=== PATIENT | female | born 1995 | race Caucasian/White ===

== ENCOUNTER 2021-02-18 12:57 | Emergency (ER) | payer OTHER, SELFPAY ==
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
[2021-02-18 13:13] VITALS: BP 144/76; PULSE 76; RESP 16; TEMP 36.2; O2SAT 100
== END 2021-02-18 13:44 | disposition home or self-care (01) ==
PROVIDERS: Emergency Provider Nurse Practitioner Family
DX: M54.50 Low back pain, unspecified (principal); V48.6XXD Car passenger injured in noncollision transport accident in traffic accident, subsequent encounter; J45.909 Unspecified asthma, uncomplicated
CPT/HCPCS: 99213; G0463

== ENCOUNTER 2021-05-31 14:10 | Emergency (ER) | payer OTHER, SELFPAY ==
--- NOTE | 2021-05-31 14:24 | ED.GENADULT ---
HPI - General Adult General Chief complaint: Urogenital-Female Stated complaint: vaginal discharge Time Seen by Provider: 05/31/21 14:28 Source: patient Mode of arrival: ambulatory Limitations: no limitations History of Present Illness HPI narrative: 25-year-old female patient presents to the [facility] with complaints vaginal discharge for the past 2 to 3 days. Patient states she was contacted by her ex and was told that he was diagnosed with an STD but she was not sure which one. Patient states she has had chlamydia before and has been diagnosed with herpes. Patient denies at this time stating she recently has had a period. Related Data Home Medications Medication Instructions Recorded Confirmed albuterol sulfate See Rx Instructions .ROUTE .COMPLEX 02/18/21 05/31/21 Allergies Allergy/AdvReac Type Severity Reaction Status Date / Time No Known Allergies Allergy Unknown Verified 05/31/21 14:31 Review of Systems Review of Systems: CONSTITUTIONAL: Denies fever, chills, or sweats. EYES: Denies visual changes, redness, or discharge. ENT: Denies rhinorrhea, congestion, sore throat, or otalgia. CARDIOVASCULAR: Denies chest pain, palpitations, or edema. RESPIRATORY: Denies cough or dyspnea. GASTROINTESTINAL: Denies abdominal pain, nausea, vomiting, or diarrhea. GENITOURINARY: Denies dysuria or hematuria. Positive vaginal discharge SKIN: Denies rash or itching. MUSCULOSKELETAL: Denies back pain, joint pain, or myalgia. NEUROLOGIC: Denies headache, numbness, or weakness. PSYCHIATRIC: Denies anxiety or depression. PMFSH Comments At the time of my signature I agree with nursing past medical history, surgical, social, and family history. There is no relevant family history pertinent to the presenting complaint. Exam Narrative: GENERAL: Well-appearing, well-nourished, and in no acute distress. HEAD: Normocephalic, atraumatic. EYES: PERRLA and EOMI. ENT: Nares clear, no rhinorrhea or epistaxis. Mucous membranes moist. NECK: Supple. No lymphadenopathy CHEST: Clear to auscultation. No respiratory distress. HEART: Regular rate and rhythm. No murmur heard. Normal peripheral pulses. ABDOMEN: Soft, nontender, nondistended, normal active bowel sounds. : Normal external female genitalia. OS is closed. No adnexal fullness or TTP. No CVA tenderness to percussion. Patient does have some white milky discharge noted on exam with odor. EXTREMITIES: Normal range of motion. No edema. SKIN: Warm, dry, no rash. NEURO: No focal deficits. Alert and oriented x3. Course Course Level of Care: Express Care Visit Vital Signs Vital signs: Vital Signs Temperature 36.5 C 05/31/21 14:25 Pulse Rate 79 05/31/21 14:25 Respiratory Rate 16 05/31/21 14:25 Blood Pressure 132/73 05/31/21 14:25 Pulse Oximetry 100 05/31/21 14:25 Temperature 36.5 C 05/31/21 14:25 Pulse Rate 79 05/31/21 14:25 Respiratory Rate 16 05/31/21 14:25 Blood Pressure 132/73 05/31/21 14:25 Pulse Oximetry 100 05/31/21 14:25 Vital signs reviewed Medical Decision Making Differential Diagnosis Differential Diagnosis: Differential diagnosis: Gonorrhea, chlamydia, Trichomonas, bacterial vaginosis, herpes, HIV, yeast infection, urinary tract infection. Recap patient is to send off swabs from the vaginal area to be tested for gonorrhea, chlamydia, trichomonas and bacterial vaginosis. We will go ahead and treat her today. Discussed with patient she should not engage in any type of sexual activity for at least 7 days after treatment. Patient verbalized understanding denies any other questions or concerns at this time. Vital Signs Vital Signs: Vital Signs Temperature 36.5 C 05/31/21 14:25 Pulse Rate 79 05/31/21 14:25 Respiratory Rate 05/31/21 14:25 Blood Pressure 132/73 05/31/21 14:25 Pulse Oximetry 100 05/31/21 14:25 Temperature 36.5 C 05/31/21 14:25 Pulse Rate 79 05/31/21 14:25 Respiratory Rate
[2021-05-31 14:25] VITALS: BP 132/73; PULSE 79; RESP 16; TEMP 36.5; O2SAT 100
[2021-05-31] MEDS: cefTRIAXone 500 MG VIAL IM (15:00)
== END 2021-05-31 15:15 | disposition home or self-care (01) ==
PROVIDERS: Emergency Provider Nurse Practitioner Family
DX: Z20.2 Contact with and (suspected) exposure to infections with a predominantly sexual mode of transmission (principal); J45.909 Unspecified asthma, uncomplicated
CPT/HCPCS: 81025; 87070; 87491; 87591; 87661; 96372; 99214; G0463; J0696

== ENCOUNTER 2021-10-11 19:26 | Emergency (ER) | payer OTHER, SELFPAY ==
--- NOTE | 2021-10-11 19:27 | ED.FEMALEGU ---
HPI - Female Genitourinary General Chief complaint: Urogenital-Female Stated complaint: std checks Time Seen by Provider: 10/11/21 19:26 Source: patient Mode of arrival: ambulatory Limitations: no limitations History of Present Illness HPI Narrative: Ms. Stallworth is a 26-year-old female patient presenting to the clinic today with complaints of wanting an STD check. She reports one of her recent partners tested positive for chlamydia and she is wanting testing and treatment. She denies any pelvic pain, fever, or chills. She is currently on her menses. She reports that she has had some light vaginal discharge with foul odor over the past week. Related Data Home Medications Medication Instructions Recorded Confirmed albuterol sulfate 90 mcg/actuation See Rx Instructions .Route .COMPLEX 02/18/21 10/11/21 aerosol inhaler Allergies Allergy/AdvReac Type Severity Reaction Status Date / Time No Known Allergies Allergy Unknown Verified 10/11/21 19:42 Review of Systems Review of Systems: Pertinent positives per HPI. Patient denies any fever, chills, rash, headache, visual changes, dizziness, cough, runny nose, sore throat, shortness of breath, chest pain, palpitations, nausea, vomiting, diarrhea, constipation, abdominal pain, or any urinary issues. PMFSH Comments At the time of my signature, I reviewed and agree with the nursing past medical, surgical, social, and family history. There is no relevant family history pertinent to the patient complaint. Exam Narrative: General: Well-developed, morbidly obese, in no apparent distress Head: Normocephalic, atraumatic. Cardio: Regular rate and rhythm, s1 and s2 normal, no murmur appreciated. Resp: Clear to auscultation bilaterally, no rhonchi, rales, wheezing or rubs. Abdomen: Soft, pliable, bowel sounds present in all quadrants, non-tender to palpation, no CVAT tenderness. : Deferred Course Course Emergency Course: Portions of this record may have been created with voice recognition software. Level of Care: Express Care Visit Vital Signs Vital signs: Vital signs reviewed MDM - Female Genitourinary MDM Narrative Medical decision making narrative: At the time of assessment patient is resting comfortably on the exam table.. She denies any pelvic pain. She is having some light foul-smelling discharge. Has a known exposure to chlamydia. Will empirically treat giving Rocephin and doxycycline. Anticipatory guidance given to the patient and she voiced understanding of discharge instructions. Dirty urine sent for chlamydia, gonorrhea, and trichomonas Differential Diagnosis Differential diagnosis: Likely urinary tract infection, bacterial vaginosis, trichomoniasis, cervicitis and vaginitis Discharge Plan Discharge Clinical Impression: Exposure to chlamydia Patient Disposition: Home, Self-Care Condition: Stable Instructions: Antibiotic Form, Chlamydia (ED) Additional Instructions: Doxycycline as prescribed 500 mg IM given in the clinic today We have tested/treated you for STIs in the clinic today. Avoid any sexual activity- includes oral, anal, or vaginal intercourse until you get results back and have completed any additional recommended treatment regimens. Results typically can take 7-10 days to come back. Occasionally it may be longer depending on [facility] labs as this testing is shipped out of state. May call [facility] location that you had testing completed for results in that time frame. We will contact you if testing is positive and make sure your treatment was appropriate for the type of STI. If symptoms worsen after treatment recommend reevaluation with your PCP or [facility]. Prescriptions: New doxycycline monohydrate 100 mg capsule 100 mg PO BID 7 Days Qty: 14 0RF No Action albuterol sulfate 90 mcg/actuation HFA aerosol inhaler See Rx Instructions .ROUTE .COMPLEX Rx Instructions: 2 PUFFS EV
[2021-10-11 19:29] VITALS: BP 154/85; PULSE 86; RESP 20; TEMP 36.4; O2SAT 100
== END 2021-10-11 20:25 | disposition home or self-care (01) ==
PROVIDERS: Emergency Provider Nurse Practitioner Family
DX: Z20.2 Contact with and (suspected) exposure to infections with a predominantly sexual mode of transmission (principal); J45.909 Unspecified asthma, uncomplicated
CPT/HCPCS: 87491; 87591; 87661; 99213; G0463; J0696

== ENCOUNTER 2022-06-02 08:48 | Emergency (ER) | payer OTHER, SELFPAY ==
[2022-06-02 08:54] VITALS: BP 158/94; PULSE 101; RESP 16; TEMP 37.3; O2SAT 100
--- NOTE | 2022-06-02 09:07 | ED.URI ---
HPI - URI/Sore Throat General Chief Complaint: Upper Respiratory Infection Stated Complaint: Sore Throat Time Seen by Provider: 06/02/22 09:07 Source: patient Mode of arrival: ambulatory Limitations: no limitations History of Present Illness HPI Narrative: 26-year-old female presents with complaint of sore throat, fatigue, chills, body aches, headache starting yesterday. Denies nausea vomiting diarrhea. Afebrile. All systems reviewed and negative except as noted above. Related Data Home Medications Medication Instructions Recorded Confirmed albuterol sulfate 90 mcg/actuation 2 puff inhalation Q4-6H PRN 02/18/21 06/02/22 aerosol inhaler Shortness Of Breath aripiprazole lauroxil,submicr. 675 2.4 ml IM WEEKLY 10/11/21 06/02/22 mg/2.4 mL susp,ext.rel.IM syringe ([employer]) lisdexamfetamine 30 mg capsule 30 mg PO DAILY 06/02/22 06/02/22 (Vyvanse) Allergies Allergy/AdvReac Type Severity Reaction Status Date / Time No Known Allergies Allergy Unknown Verified 06/02/22 09:16 Review of Systems Review of Systems: CONSTITUTIONAL: Denies fever, chills, or sweats. reports fatigue. EYES: Denies visual changes, redness, or discharge. ENT: Denies rhinorrhea, congestion . Reports sore throat. Denies otalgia. CARDIOVASCULAR: Denies chest pain, palpitations, or edema. RESPIRATORY: Denies cough or dyspnea. GASTROINTESTINAL: Denies abdominal pain, nausea, vomiting, or diarrhea. GENITOURINARY: Denies dysuria or hematuria. SKIN: Denies rash or itching. MUSCULOSKELETAL: Denies back pain, joint pain, or myalgia. NEUROLOGIC: Denies headache, numbness, or weakness. PSYCHIATRIC: Denies anxiety or depression. All other systems reviewed are negative, except as documented in HPI. PMFSH Comments At time of signature, agree with nursing past medical, surgical, social and family history. There is no relevant family history pertinent to the presenting complaint. Exam Narrative: GENERAL: This is a well-nourished, well-developed patient, in no apparent distress. HEAD: normocephalic, atraumatic. EYES: PERRL. Sclera clear/white. Vision is grossly intact. EARS: External ears normal, auditory canals clear and without drainage, TMs normal without perforation. Hearing grossly intact. NOSE: External nose normal with no obvious nasal discharge, nares without redness, no rhinorrhea. THROAT: Mucous membranes moist, Erythematous. Tonsils 2+ bilaterally. No exudates. NECK: Neck supple, non-tender without lymphadenopathy, masses or thyromegaly. CARDIOVASCULAR: Regular rate and rhythm without murmurs, gallops, or rubs. RESPIRATORY: Clear to auscultation. Breath sounds equal bilaterally. No wheezes, rales, or rhonchi. SKIN: warm, Dry, intact with no suspicious lesions or rash, good texture and turgor. NEURO: awake, alert, and oriented to person, place and time. There were no obvious focal neurologic abnormalities. EXTREMITIES: No joint tenderness, effusion, or edema noted. Course Course Level of Care: Express Care Visit Vital Signs Vital signs: Vital Signs Temperature 37.3 C 06/02/22 08:54 Pulse Rate 101 H 06/02/22 08:54 Respiratory Rate 16 06/02/22 08:54 Blood Pressure 158/94 H 06/02/22 08:54 Pulse Oximetry 100 06/02/22 08:54 Oxygen Delivery Room Air 06/02/22 08:54 Temperature 37.3 C 06/02/22 08:54 Pulse Rate 101 H 06/02/22 08:54 Respiratory Rate 16 06/02/22 08:54 Blood Pressure 158/94 H 06/02/22 08:54 Pulse Oximetry 100 06/02/22 08:54 Oxygen Delivery Room Air 06/02/22 08:54 Reviewed MDM - URI/Sore Throat MDM Narrative Medical decision making narrative: Patient is aware of diagnosis, understands and agrees to treatment plan. Anticipatory guidance given. Patient agrees to follow-up as directed and is aware of reasons to seek care at the emergency department. Portions of this record may have been created with voice recognition software Differential Diagnosis Differential
== END 2022-06-02 09:20 | disposition home or self-care (01) ==
PROVIDERS: Emergency Provider Nurse Practitioner Family
DX: J02.0 Streptococcal pharyngitis (principal); J45.909 Unspecified asthma, uncomplicated; F90.9 Attention-deficit hyperactivity disorder, unspecified type
CPT/HCPCS: 87880; 99213; G0463

== ENCOUNTER 2023-08-14 16:44 | Emergency (ER) | payer BC, MEDICAID, SELFPAY ==
--- NOTE | ~2023-08-14 | XR_ITS ---
EXAM: XR foot RT min 3V DATE: 08/14/2023 17:04 HISTORY: TRIPPING INJURY, MEDIAL METATARSAL PAIN . COMPARISON: None available. FINDINGS: Normal mineralization. No fracture or dislocation. 8mm circumscribed lucency in the carlos medial cortex of the proximal left humeral diaphysis, no periosteal change or endosteal scalloping. J oint spaces are maintained. No erosion or periosteal change. Soft tissues within normal limits. IMPRESSION: No acute osseous finding in the left shoulder. 8 mm lucency in the anterior medial cortex of the proximal left humeral diaphysis, no aggressive feat ures, may represent an osteoid osteoma or other presumably benign bone lesion, correlate for findings of chronic proximal humeral pain. Comparison to outside studies would be helpful if available. If as sociated with pain, consider outpatient CT and/or MRI for further evaluation. Reviewed, dictated and finalized at [facility]. IMPRESSION: No acute osseous finding in the left shoulder. 8 mm lucency in the anterior medial cortex of the proximal left humeral diaphys is, no aggressive features, may represent an osteoid osteoma or other presumabl y benign bone lesion, correlate for findings of chronic proximal humeral pain. Comparison to outside studies would be helpful if available. If associated with pain, consider outpatient CT and/or MRI for further evaluation.
[2023-08-14 16:48] VITALS: BP 168/84; PULSE 111; RESP 20; TEMP 37; O2SAT 100
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
== END 2023-08-14 17:25 | disposition home or self-care (01) ==
PROVIDERS: Emergency Provider Nurse Practitioner Family
DX: M79.671 Pain in right foot (principal); J45.909 Unspecified asthma, uncomplicated; F90.9 Attention-deficit hyperactivity disorder, unspecified type
CPT/HCPCS: 73630; 99213; G0463